=== PATIENT | male | born 1980 | race Caucasian/White ===

== ENCOUNTER 2018-04-15 07:38 | Emergency (ER) | payer OTHER ==
[2018-04-15] MEDS ORDERED: KETOROLAC TROMETHAMINE 30 MG/1ML VIAL IVP ONE (07:48)
[2018-04-15] MEDS ORDERED: ASPIRIN 81 MG CHEW TAB PO ONE (07:48)
[2018-04-15] MEDS ORDERED: LORazepam 2 MG/ML VIAL ONE (08:04)
[2018-04-15] MEDS ORDERED: LORazepam 2 MG/ML VIAL IVP ONE (08:10)
[2018-04-15] MEDS ORDERED: fentaNYL CITRATE/PF 100 MCG/ 2ML AMP IVP ONE ×2 (08:26→10:32)
[2018-04-15 08:27] LABS: BASOPHILS % 0.5 (0.0-1.5); EOSINOPHILS % 2.2 % (0.0-6.8); MEAN CORPUSCULAR HEMOGLOBIN 33.3 pg (28.0-34.0); MEAN CORPUSCULAR VOLUME 96.4 fl (80.0-100.0); MONOCYTES % 4.4 % (0.0-11.0)
[2018-04-15 08:43] LABS: eGFR (African) > 60; eGFR (Non-African) > 60
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
[2018-04-15] MEDS ORDERED: HYDROmorphone HCL/PF 2 MG/ML DISP.SYRIN ONE (12:06)
[2018-04-15] MEDS ORDERED: HYDROmorphone HCL/PF 1 MG/ML DISP.SYRIN IVP ONE (12:38)
[2018-04-15 12:47] VITALS: BP 125/80
--- NOTE | 2018-04-15 18:04 | Diagnostic Imaging Report ---
RICKIE HEAD [facility] [address] [facility] [address] [place], [place]. [address] Report Submission Date: Apr 15, 2018 8:37:49 AM CDT Patient Study Name: JASKARAN BATRES Date: Apr 15, 2018 8:12:38 AM CDT Modality Type: DX Gender: M Description: CHEST : 80 Institution: [facility] Physician: RICKIE HEAD Portable chest History: Chest pain Portable chest dated April 15, 2018 is without prior radiographs for comparison. The cardiomediastinal silhouette is normal. Pulmonary vascularity is normal. Calcified granulomata are present bilaterally. There is no confluent infiltrate or pleural effusion. Impression: Old granulomatous disease. No active disease. Electronically signed on Apr 15, 2018 8:37:49 AM CDT by: Lizy WEN
== END 2018-04-15 12:42 | disposition home or self-care (01) ==
LOC: ED 07:38
DX: R07.89 Other chest pain (principal); F17.210 Nicotine dependence, cigarettes, uncomplicated
CPT/HCPCS: 71046; 80053; 82550; 82553; 84484; 85025; 93005; J1170; J1885; J2060; J3010; 96374; 96375; 96376; 99284; S1016

== ENCOUNTER 2019-07-05 08:00 | Emergency (ER) | payer OTHER ==
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
== END 2019-07-05 09:10 | disposition home or self-care (01) ==
LOC: ED 08:00
DX: S13.9XXA Sprain of joints and ligaments of unspecified parts of neck, initial encounter (principal); V49.40XA Driver injured in collision with unspecified motor vehicles in traffic accident, initial encounter
CPT/HCPCS: 72040; 99282